=== PATIENT | female | born 1970 | race Caucasian/White ===

== ENCOUNTER 2018-09-09 18:34 | Emergency (ER) | payer OTHER ==
[~2018-09-09] VITALS: Ht 157.5 cm; Wt 56.7 kg
[2018-09-09 18:37] VITALS: BP 114/73; PULSE 82; RESP 18; Ht 157.5 cm; Wt 56.7 kg
--- NOTE | 2018-09-09 21:34 | ERD ---
ER Documentation Chief Complaint Chief Complaint BILAT EAR PAIN X'S 1 MONTH HPI This is a 47-year-old female presents here to emergency department for bilateral ear pain for about a month. Seen by her primary care physician and was prescribed Sudafed for congestion. Also complains of nasal congestion. 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 LMP: Denies headache, head injury, loss of consciousness, dizziness, neck pain, neck stiffness, throat pain, difficulty swallowing, difficulty breathing lying flat, shoulder pain, chest pain, back pain, abdominal pain, nausea, vomiting, constipation, diarrhea, urinary symptoms, or possibility being , loss of bowel and bladder control, trauma, injury, falls, difficulty walking due to pain, numbness or tingling sensation, calf pain, recent travel, recent major surgery in the last 3 weeks, calf pain, recent long travel, recent exposure to any illness, recent antibiotic use in the last 3 months, fever, chills, seizures. Past medical history: Surgical history: Social: Denies smoking, use of alcoholic beverages, use of illegal drugs. ROS All systems reviewed and are negative except as per history of present illness. Medications Home Meds Active Scripts Diphenhydramine Hcl* (Benadryl*) 25 Mg Cap, 25 MG PO Q6 PRN for ITCHING/RASH, #30 TAB Prov:LEOLA ADAMES 09/09/18 Methylprednisolone* (Medrol* DOSE PACK) 4 Mg/Dose-Pack Tab.ds.pk, 4 MG PO . DIRECTED, #1 PACKET Prov:LEOLA ADAMES 09/09/18 Loratadine* (Loratadine*) 10 Mg Tablet, 10 MG PO DAILY, #30 TAB Prov:LEOLA ADAMES F 09/09/18 Mometasone Furoate* (Nasonex*) 50 Mcg/[place] - 17 Gm [place].pump, 1 SPRAY NASAL BID, #1 BOTTLE IN EACH NOSTRIL Prov:LEOLA ADAMES 09/09/18 Allergies Allergies: Coded Allergies: No Known Allergy (Unverified , 09/09/18) Physical Exam Vitals Physical Exam Const: No acute distress Head: Atraumatic. Scalp is intact. No vesicular lesions. Eyes: Normal Conjunctiva. Good eye movement. There is no visual field loss. 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 ENT: Normal External Ears, Nose and Mouth. Bilateral ears: TMs are not erythematous. No foreign body seen. No mastoid tenderness. No hearing loss. No bleeding. No discharge. Nose: There is mild frontal and maxillary sinus tenderness palpation. Throat: Uvula is midline and nondisplaced. Tonsils are +1 bilaterally without redness without exudates. Tolerating secretions good patent airway. Speaks full and clear sentences. No tripoding. Neck: Full range of motion. No meningismus. No nuchal rigidity. No signs of meningeal irritation. Resp: Clear to auscultation bilaterally Cardio: Regular rate and rhythm, no murmurs Abd: Soft, non tender, non distended. Normal bowel sounds Skin: No petechiae or rashes. No vesicular lesions. No skin tenting. No signs of severe dehydration. Back: No midline or flank tenderness Ext: No cyanosis, or edema Neur: Awake and alert. Has chronic left-sided facial droop (stated that she was born with this). Equal [employer]. Equal strength in bilateral upper and lower extremities. Romberg test is negative. No neurological deficits. Psych: Normal Mood and Affect Procedures/MDM I offered diagnostic tests and treatment but patient strongly refused. Diagnostic tests: Clinical exam. Treatment not applicable.: Re-evaluation:Not applicable. Differential diagnosis I have low suspicion for sepsis, mastoiditis, meningitis, peritonsillar abscess, subarachnoid hemorrhage, stroke, bronchospasm, shingles. Final diagnosis: Otalgia. Allergic rhinitis. Viral sinusitis. Prescription: Claritin. Motrin. Nasonex. Follow-up with PCP in the next 24-48 hours. Follow-up with ENT in the next 24- 48 hours. Come back here in the emergency department for any new symptoms or any worsening symptoms. All questions and concerns were answered. Patient and family members verbalized understanding and agreed with plan of care. Hemodynamically stable on discharge. Departure Diagnosis: Primary Impression: Acute pain of both ears Additional Impressions: Otalgia Congestion of both ears Condition: Stable Additional Instructions: Follow-up with PCP in the next 24-48 hours. Follow-up with ENT in the next 24- 48 hours. Come back here in the emergency department for any new symptoms or any worsening symptoms. LEOLA ADAEMS Sep 09, 2018 21:34
[2018-09-09] MEDS ORDERED: NASO17 NASAL (21:55)
[2018-09-09] MEDS ORDERED: MED4DP PO (21:56)
[2018-09-09] MEDS ORDERED: BEN25 PO (21:56)
[2018-09-09] MEDS ORDERED: LORA10TA3 PO (21:56)
== END 2018-09-09 22:12 | disposition home or self-care (01) ==
LOC: FTE 18:34
DX: H92.03 Otalgia, bilateral (principal); H93.8X3 Other specified disorders of ear, bilateral
CPT/HCPCS: 99283